=== PATIENT | male | born 1955 | race Caucasian/White ===

== ENCOUNTER → 2020-06-17 | Outpatient (CLI) | payer BC, MEDICARE, OTHER ==
[~2020-06-17] MED LIST: ACET650T61 PO; ASPI81CH33 PO; ATOR40TA75 PO; B-12100010 PO; LEVO112C PO; LOSA100T50 PO; MELATAB7 PO; METF10004 PO; MULTCHW12 PO; PIOG1TAB55 PO; TAMS1CAP17 PO
== END ==
LOC: M LABSMTC 08:14
PROVIDERS: ATTEND Anesthesiology
DX: Z01.812 Encounter for preprocedural laboratory examination (principal); Z11.52 Encounter for screening for COVID-19

== ENCOUNTER 2020-06-22 08:20 | Day surgery (SDC) | payer MEDICARE ==
[~2020-06-22] VITALS: Ht 177.8 cm; Wt 102.9 kg
[2020-06-22] MEDS ORDERED: propofoL 200 MG/20 ML VIAL As Ordered ONE ×2 (09:28→09:48)
[2020-06-22] MEDS ORDERED: LIDOCAINE 2% MDV 20ML VIAL As Ordered ONE (09:28)
--- NOTE | 2020-06-22 10:01 | ROOR ---
Patient Name: Jimbo Salas Procedure Date: 06/22/2020 9:35 AM Date of : 1955 Age: 65 Room: [facility] Gender: Male Note Status: Finalized Procedure: Colonoscopy Indications: Screening for colorectal malignant neoplasm Providers: Petros Weber Jr, MD Referring MD: Won Guerra MD Requesting Provider: Medicines: Propofol per Anesthesia Complications: No immediate complications. Procedure: Pre-Anesthesia Assessment: - Prior to the procedure, a History and Physical was performed, and patient medications and allergies were reviewed. The patient is competent. The risks and benefits of the procedure and the sedation options and risks were discussed with the patient. All questions were answered and informed consent was obtained. Patient identification and proposed procedure were verified by the physician and the nurse in the pre-procedure area and in the procedure room. Mental Status Examination: alert and oriented. Airway Examination: normal oropharyngeal airway and neck mobility. Respiratory Examination: clear to auscultation. CV Examination: normal. ASA Grade Assessment: II - A patient with mild systemic disease. After reviewing the risks and benefits, the patient was deemed in satisfactory condition to undergo the procedure. The anesthesia plan was to use moderate sedation / analgesia (conscious sedation). Immediately prior to administration of medications, the patient was re-assessed for adequacy to receive sedatives. The heart rate, respiratory rate, oxygen saturations, blood pressure, adequacy of pulmonary ventilation, and response to care were monitored throughout the procedure. The physical status of the patient was re-assessed after the procedure. The Colonoscope was introduced through the anus and advanced to the cecum, identified by appendiceal orifice and ileocecal valve. The colonoscopy was performed without difficulty. The patient tolerated the procedure well. The quality of the bowel preparation was adequate. Findings: Seven sessile polyps were found in the sigmoid colon, descending colon, transverse colon, ascending colon and cecum. The polyps were small in size. These polyps were removed with a cold snare. Resection and retrieval were complete. The rectum, recto-sigmoid colon, appendiceal orifice, ileocecal valve and ileum appeared normal. Impression: - Seven small polyps in the sigmoid colon, in the descending colon, in the transverse colon, in the ascending colon and in the cecum, removed with a cold snare. Resected and retrieved. - The rectum, recto-sigmoid colon, appendiceal orifice, ileocecal valve and terminal ileum are normal. Recommendation: - Discharge patient to home (ambulatory). - Repeat colonoscopy in 5 years for surveillance based on pathology results. Procedure Code(s): --- Professional --- 31242, Colonoscopy, flexible; with removal of tumor(s), polyp(s), or other lesion(s) by snare technique Diagnosis Code(s): --- Professional --- Z12.11, Encounter for screening for malignant neoplasm of colon K63.5, Polyp of colon CPT copyright 2019 [employer]. All rights reserved. The codes documented in this report are preliminary and upon identification and records commander review may be revised to meet current compliance requirements. Petros Weber MD Petros Weber Jr, MD 06/22/2020 10:01:28 AM Electronically signed by Petros Weber Jr, MD Number of Addenda: 0 Note Initiated On: 06/22/2020 9:35 AM Estimated Blood Loss: Estimated blood loss: none.
[2020-06-22 10:20] VITALS: BP 114/59
== END 2020-06-22 10:30 | disposition home or self-care (01) ==
LOC: M OPP 08:20
PROVIDERS: ATTEND Surgery
DX: Z12.11 Encounter for screening for malignant neoplasm of colon (principal); K63.5 Polyp of colon; E11.9 Type 2 diabetes mellitus without complications; E03.9 Hypothyroidism, unspecified; I10 Essential (primary) hypertension; Z79.82 Long term (current) use of aspirin; Z79.899 Other long term (current) drug therapy; Z87.891 Personal history of nicotine dependence

== ENCOUNTER → 2022-08-22 | Outpatient (REF) | payer MEDICARE ==
[~2022-08-22] MED LIST changes: +LOSA100T46 PO; -LOSA100T50 PO
[2022-08-23 13:36] LABS: VITAMIN B12 LEVEL 1115 PG/ML (211-911)
[2022-08-23 13:37] LABS: FOLATE > 24.0 NG/ML (>5.4)
== END ==
LOC: M LAB REF 12:33
PROVIDERS: ATTEND Family Medicine
DX: D64.9 Anemia, unspecified (principal)